=== PATIENT | male | born 1960 | race Two or more races ===

== ENCOUNTER 2018-10-08 15:51 | Emergency (ER) | payer MEDICAID, OTHER ==
[~2018-10-08] VITALS: Ht 170.2 cm; Wt 121.6 kg
[2018-10-08] MEDS ORDERED: SODIUM CHLORIDE 0.9% 500 ML IV ONE (17:01)
[2018-10-08 17:06] LABS: Basophils # (auto) 0 uL; Basophils % (auto) 0.1 % (0.0-2.0); Eosinophils # (auto) 0 uL; Hematocrit 55.3 % (41.0-53.0); Hemoglobin 19.1 g/dL (13.5-17.5); Lymphocytes # (auto) 0.8 uL; Lymphocytes % (auto) 7.4 % (10.0-50.0); Mean Corpuscular Hemoglobin 30.1 pg (28.0-32.0); Mean Corpuscular Hgb Conc. 34.5 g/dL (32.0-36.0); Mean Corpuscular Volume 87.4 fL (80.0-100.0); Monocytes # (auto) 0.5 uL; Monocytes % (auto) 4.8 % (0.0-12.0); Neutrophils # (auto) 9.5 uL; Neutrophils % (auto) 87.7 % (37.0-80.0); Nucleated Red Blood Cells % 0.1 %; Platelet Count (auto) 257 10^3/uL (140-450); Red Blood Cells 6.33 10^6/uL (4.5-5.90); Red Cell Distribution Width 12.8 % (11.8-14.3); White Blood Cell 10.9 10^3/uL (4.4-10.8)
[2018-10-08] MEDS ORDERED: ONDANSETRON HCL 4 MG/2 ML VIAL IV ONE (17:15)
[2018-10-08] MEDS ORDERED: InsuLIN REG 1unit/0.01ml Soln (100units/ml) IV ONE ×2 (17:15→18:15)
[2018-10-08] MEDS ORDERED: cloNIDine HCL 0.1 MG TAB PO ONE (17:15)
[2018-10-08 17:19] LABS: INR 1.05 (0.9-1.15); Partial Thromboplastin Time 26.1 sec (23.78-33.04); Prothrombin Time 11.2 sec (9.27-12.13)
[2018-10-08 17:22] LABS: Alanine Aminotransferase 26 U/L (16-61); Albumin 4.3 g/dL (3.4-5.0); Anion Gap 12 (5-15); Aspartate Aminotransferase 12 U/L (15-37); Blood Urea Nitrogen 21 mg/dL (7-18); Calcium 9.2 mg/dL (8.5-10.1); Carbon Dioxide 25 mmol/L (21-32); Chloride 99 mmol/L (98-107); Glucose 374 mg/dL (74-106); Sodium 136 mmol/L (136-145)
[2018-10-08 17:27] LABS: Alkaline Phosphatase 87 U/L (45-117); BUN/Creatinine Ratio 18.6; Bilirubin, Total 2.3 mg/dL (0.2-1.0); GFR African American 86 mL/min; GFR Non-African American 71 mL/min; Total Protein 8.3 g/dL (6.4-8.2)
[2018-10-08] MEDS ORDERED: NICARDIPINE 25MG/250ML BAG KIT 250 ML IV SCH ×2 (18:00→21:45)
[2018-10-08] MEDS ORDERED: cefTRIAXone 1GM/50ML D5W 50 ML IV ONE (18:15)
[2018-10-08] MEDS ORDERED: DEXTROSE (50%) 50ML SYRG IV PRN (19:15)
[2018-10-08] MEDS ORDERED: NITROGLYCERIN 0.4 MG SL TAB SL PRN (19:15)
[2018-10-08] MEDS ORDERED: MORPHINE SULF INJ 2 MG/ML SYRINGE 1ML IV PRN ×2 (19:15)
[2018-10-08] MEDS ORDERED: SODIUM CHLORIDE 0.9% 1,000 ML IV SCH (19:15)
[2018-10-08] MEDS ORDERED: HYDROcodone-ACET 5/325MG TAB PO PRN (19:15)
[2018-10-08] MEDS ORDERED: ACETAMINOPHEN 500 MG TAB PO PRN (19:15)
[2018-10-08] MEDS ORDERED: ASPirin-EC 81 mg tab PO ONE (19:15)
[2018-10-08] MEDS ORDERED: ASPirin 81 mg TAB PO ONE ×2 (19:15→22:15)
[2018-10-08] MEDS ORDERED: ONDANSETRON HCL 4 MG/2 ML VIAL IV PRN (19:15)
[2018-10-08] MEDS ORDERED: NICARDIPINE 25MG/250ML BAG KIT 250 ML IV ONE (21:42)
[2018-10-08] MEDS ORDERED: ACCU-CHEK COMFORT CURVE STRIP VI SCH (22:00)
[2018-10-08] MEDS ORDERED: ATORVASTATIN 20 MG TAB PO SCH (22:00)
[2018-10-08] MEDS ORDERED: InsuLIN REG 1unit/0.01ml Soln (100units/ml) SC SCH (22:00)
[2018-10-08 23:30] VITALS: BP 177/119
[2018-10-09] MEDS ORDERED: ASPirin-EC 81 mg tab PO SCH (10:00)
== END 2018-10-08 23:43 | disposition short-term general hospital (02) ==
LOC: EDBD 15:51 → ER 15:56 → TELE 18:15 → UNDOADMIN 18:15 → ER 23:43
DX: I63.9 Cerebral infarction, unspecified (principal); I10 Essential (primary) hypertension; R73.9 Hyperglycemia, unspecified; E80.6 Other disorders of bilirubin metabolism
CPT/HCPCS: 36415; 70450; 71045; 80053; 82010; 82962; 84484; 85025; 85610; 85730; 87040; 94761; 96361; 96365; 96366; 96367; 96368; 96375; 99285; J0696; J1815; J2405; J7040